=== PATIENT | male | born 1975 | race Hispanic/Latino ===

== ENCOUNTER 2020-03-22 14:00 | Emergency (ER) | payer SELFPAY ==
[~2020-03-22] VITALS: Ht 162.6 cm; Wt 75.0 kg
[2020-03-22 15:30] VITALS: BP 143/80
== END 2020-03-22 15:30 | disposition home or self-care (01) | DRG 153 ==
LOC: ED 14:00
DX: J02.9 Acute pharyngitis, unspecified (principal); Z20.828 Contact with and (suspected) exposure to other viral communicable diseases